=== PATIENT | female | born 1985 ===

== ENCOUNTER 2017-06-15 21:16 | Inpatient (IN) | payer MEDICAID, MEDICARE, OTHER ==
[2017-06-15 21:16] VITALS: BMI 30.2
[2017-06-16 16:46] VITALS: RESP 20
[2017-06-17 17:11] VITALS: BP 114/77; PULSE 100; TEMP 97.7; O2SAT 96
== END 2017-06-17 18:07 | disposition left against medical advice (07) | DRG 781 ==
LOC: C.ER 21:16 → C.9OBSV 23:52 → OBSVTOIN 06-16 13:02 → C.9E 06-16 13:02 → C.5T 06-16 14:48
PROVIDERS: ADMIT Internal Medicine; ATTEND Internal Medicine
DX: O99.342 Other mental disorders complicating pregnancy, second trimester (principal); O99.412 Diseases of the circulatory system complicating pregnancy, second trimester; F17.210 Nicotine dependence, cigarettes, uncomplicated; O99.512 Diseases of the respiratory system complicating pregnancy, second trimester; Z59.0 Homelessness; I51.7 Cardiomegaly; I87.8 Other specified disorders of veins; Z3A.15 15 weeks gestation of pregnancy

== ENCOUNTER 2017-06-18 23:56 | Inpatient (IN) | payer MEDICARE, MEDICAID ==
[2017-06-18 23:57] VITALS: BMI 30.2
[2017-06-19 01:09] LABS: BLOOD UREA NITROGEN 6 mg/dL (7-17); CALCIUM 8.7 mg/dl (8.6-10.4); CARBON DIOXIDE 22 mmol/L (22-30); CHLORIDE 105 mmol/L (98-107); GFR AFRICAN-AMERICAN > 60; GLUCOSE,RANDOM 107 mg/dL (65-105); POTASSIUM 3.4 mmol/L (3.6-5.2); SODIUM 143 mmol/L (132-148); TOTAL PROTEIN 6.5 g/dL (6.3-8.3)
[2017-06-19 01:10] LABS: ALCOHOL SERUM < 10 mg/dl (0-10); ALKALINE PHOSPHATASE 82 U/L (38-126); ALT/SGPT 31 U/L (9-52); AST/SGOT 33 U/L (14-36); BILIRUBIN,TOTAL 0.3 mg/dL (0.2-1.3)
[2017-06-19 01:14] LABS: BASO # 0.2 K/uL (0.0-0.2); BASO % 1.1 % (0.0-2.0); EOS # 0.4 K/uL (0.0-0.7); EOS % 3.1 % (0.0-4.0); HEMATOCRIT 32.8 % (34.0-47.0); LYMPH # 3.7 K/uL (1.0-4.3); LYMPH % 26.4 % (20.0-40.0); MEAN CELL VOLUME 73.1 fL (81.0-99.0); MEAN CORPUSCULAR HEMOGLOBIN 23.4 pg (27.0-31.0); MEAN PLATELET VOLUME 7.4 fL (7.2-11.7); MONO # 0.7 K/uL (0.0-0.8); MONO % 4.7 % (0.0-10.0); NRBC % 0.1 % (0.0-2.0); RED CELL DISTRIBUTION WIDTH 14.7 % (11.5-14.5); WHITE BLOOD COUNT 14.1 K/uL (4.8-10.8)
[2017-06-19 03:10] VITALS: RESP 18
[2017-06-19 03:15] LABS: RBC URINE 23 /hpf (0-3); URINE BILIRUBIN NEGATIVE (NEGATIVE); URINE BLOOD NEGATIVE (NEGATIVE); URINE COLOR Yellow (YELLOW); URINE GLUCOSE (UA) NORMAL (Normal); URINE KETONE NEGATIVE (NEGATIVE); URINE LEUKOCYTE ESTERASE 3+ Leu/uL (Negative); URINE PROTEIN NEGATIVE (NEGATIVE); URINE UROBILINOGEN NORMAL mg/dL (0.2-1.0); WBC URINE 86 /hpf (0-5)
--- NOTE | 2017-06-19 03:58 | C.PDOC ---
Time Seen by Provider: 06/19/17 00:19 Chief Complaint (Nursing): Psychiatric Evaluation History Per: Patient History/Exam Limitations: other (Psychiatric condition) Current Symptoms Are (Timing): Still Present Suicide/Self Injury Attempted (Context): None Modifying Factor(s): None Severity: Moderate Associated Symptoms: Anxiety, Other (Delusions). denies: Suicidal Thoughts Additional History Per: Prior Records Past Medical History Reviewed: Historical Data, Nursing Documentation, Vital Signs Vital Signs: Last Vital Signs Temp 98.1 F 06/19/17 00:04 Pulse 98 H 06/19/17 03:33 Resp 18 06/19/17 03:33 BP 116/56 L 06/19/17 03:33 Pulse Ox 99 06/19/17 03:33 - Medical History PMH: Anxiety, Depression, Paranoia, Schizophrenia Other PMH: Pt is 15 weeks Surgical History: No Surg Hx - [facility] Procedures INJECT/INFUSE NEC (12/30/05) PSYCHIAT DRUG THERAP NEC (02/04/14) Family History: States: Unknown Family Hx - Social History Hx Tobacco Use: Yes Hx Alcohol Use: No Hx Substance Use: No Review Of Systems Constitutional: Negative for: Fever Respiratory: Negative for: Shortness of Breath Gastrointestinal: Negative for: Vomiting, Abdominal Pain, Diarrhea Genitourinary: Positive for: Dysuria. Negative for: Vaginal Bleeding Musculoskeletal: Negative for: Neck Pain, Back Pain Skin: Negative for: Rash Neurological: Negative for: Weakness, Numbness Psych: Positive for: Psychosis Physical Exam - Physical Exam Appears: Non-toxic, No Acute Distress Skin: Normal Color, Warm, Dry Head: Atraumatic, Normacephalic Eye(s): bilateral: PERRL, EOMI Oral Mucosa: Moist Neck: Normal ROM, Supple Cardiovascular: Rhythm Regular Respiratory: Normal Breath Sounds, No Accessory Muscle Use Gastrointestinal/Abdominal: Soft, No Tenderness, Other (Gravid) Extremity: Normal ROM, Pedal Edema (trace b/l) Neurological/Psych: Oriented x3, Normal Motor, Normal Sensation ED Course And Treatment - Laboratory Results Result Diagrams: 06/19/17 01:05 06/19/17 00:50 Interpretation Of Abnormal: UTI, urine C&S sent Urine POC: Positive ECG: Interpreted By Me, Viewed By Me ECG Rhythm: Sinus Tachycardia Rate From EC O2 Sat by Pulse Oximetry: 99 Pulse Ox Interpretation: Normal Progress Note: Pt is medically stable for psychiatric admission. I recommend obtaining internal medicine and Telephone Lineworker consultations during admission. Reassessment Condition: Improved Disposition Counseled Patient/Family Regarding: Studies Performed, Diagnosis - Disposition Disposition: HOSPITALIZED Disposition Time: 04:01 Condition: STABLE - Clinical Impression Clinical Impression: Schizoaffective disorder, Decision To Admit - Pt Status Changed To: Hospital Disposition Of: Inpatient - Admit Certification Admit to Inpatient:: After my assessment, the patient will require hospitalization for at least two midnights. This is because of the severity of symptoms shown, intensity of services needed, and/or the medical risk in this patient being treated as an outpatient. - InPatient: Physician Admission Certification: I certify that this patient requires 2 or more midnights of care for the following reason:: Psych. - . Bed Request Type: Psychiatry Admitting Physician: Abbie Maki Patient Diagnosis: Schizoaffective disorder,
--- NOTE | 2017-06-19 05:27 | PCM.BM ---
<Hebert Ricketts - Last Filed: 06/19/17 05:24> Treatment Plan Problems - Problems identified on initial assessmt Acute Psychosis Date Initiated: 06/19/17 Time Initiated: 05:24 Assessment reference: NA Status: Active Substance Abuse Date Initiated: 06/19/17 Time Initiated: 05:29 Assessment reference: NA Status: Active Treatment assets and liabiliti Patient Assests: ADL independent Patient Liabilities: financial problems, poor support system, substance abuse, medical problems, imparied memory - Milieu Protocol Maintain good personal hygiene: daily Encourage regular showers, daily Remind patient to perform daily oral care, daily Assist patient to perform ADL's Maintain personal safety: every shift Educate patient to report safety concerns to staff, every shift Monitor environment for contraband/sharps Medication safety: Monitor for expected outcome, potential side effects: every shift, Assess barriers to learning: every shift, Assess readiness for medication education: every shift <Abbie Maki - Last Filed: 06/23/17 00:05> - Diagnosis (1) Schizoaffective disorder Status: Acute Interventions: 06/23/17 00:05 * Assess/adjust medications daily and /or as needed * Discuss risks, benefits, sided effects and alternatives of medications * See patient on an individual basis 7x/week to assess level of delusional thoughts/ideation *
[2017-06-19] MEDS: Multiple Vitamins Tab PO SCH (11:50)
--- NOTE | 2017-06-19 16:08 | PCM.PSYCH ---
Initial Psychiatric Evaluation - Initial Psychiatric Evaluation Legal Status: Capacity Chief Complaint (in patient's own words): "I am not feeling safe" History of Present Illness and Precipitating Events: The pt is seen, chart reviewed, case discussed. She is a 32 yo F, 14 weeks . Per staff, pt was alert and verbally responsive, mood was angry and hostile on admission. She was uncooperative with assessment at bedside. Attempted to speak with patient 2 times, but pt was uncooperative both times. On admission, denied medical and surgical history and denied history of drug and alcohol use. According to crisis note she has history of drinking and marijuana use. UDS negative for drugs. Pt reported smoking a half a pack to one pack of cigarette daily. Denied suicide and homicide ideation. Denied A/V hallucinations. Current Medications: Active Medications Generic Name Dose Route Start Last Admin Trade Name Freq PRN Reason Stop Dose Admin Benztropine Mesylate 1 mg 06/19/17 11:09 Cogentin PO Q6H PRN dystonia, EPS Folic Acid 1 mg 06/19/17 11:15 06/19/17 11:50 Folic Acid PO 1 mg DAILY LEONARD Administration Haloperidol 5 mg 06/19/17 11:00 06/19/17 11:50 Haldol PO 5 mg BID LEONARD Administration Multivitamins 1 tab 06/19/17 11:15 06/19/17 11:50 Hexavitamin PO 1 tab DAILY [facility] Administration Nitrofurantoin Macrocrystals 100 mg 06/19/17 11:30 06/19/17 11:49 Macrobid PO 100 mg Q12 LEONARD Administration Thiamine HCl 50 mg 06/19/17 11:15 Vitamin B1 Tab PO DAILY LEONARD Past Psychiatric History - Past Psychiatric History Pertinent Medical Hx (Current Medical&Sleep Prob, Allergies): Allergies Allergy/AdvReac Type Severity Reaction Status Date / Time No Known Allergies Allergy Verified 03/07/13 06:36 Zolpidem [Ambien] 10 mg PO DAILY 06/15/17 Review of Systems - Neurological Neurological: As Per HPI - Psychiatric Psychiatric: As Per HPI Mental Status Examination - Personal Presentation Personal Presentation: Looks stated age - Cognitive Functions Orientation: Person, Place, Situation, Time Sensorium: Drowsy Additional comments: Patient was falling asleep during interview DSM 5 DX - DSM 5 DSM 5 Diagnosis: Psychosis unspecified rule out Schizoaffective d/o - Recommended/Plan of Treatment Treatment Recommendations and Plan of Treatment: Cogentin Folic Acid Haldol Hexavitamin Macrobid Vitamin B1 Tab Support and psychoeducation daily Attend groups and activities daily After care planning by MARS Projected ELOS: 4-5 Days Prognosis: Good with tx
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
[2017-06-19] MEDS ORDERED: Potassium Chloride 20 mEq ER Tab PO STA (19:29)
[2017-06-19] MEDS: Potassium Chloride 20 mEq ER Tab PO STA ×2 (21:11→21:12)
[2017-06-20 07:40] VITALS: TEMP 98.2; O2SAT 99
[2017-06-20] MEDS: Multiple Vitamins Tab PO SCH (10:22)
--- NOTE | 2017-06-20 11:31 | CP.PCM.PN ---
Subjective - Date & Time of Evaluation Date of Evaluation: 06/20/17 Time of Evaluation: 09:00 - Subjective Subjective: clinically same Objective - Vital Signs/Intake and Output Vital Signs (last 24 hours): Temp Pulse Resp BP Pulse Ox 98.2 F 98 H 18 111/65 99 06/20/17 07:38 06/20/17 07:38 06/20/17 07:38 06/20/17 07:38 06/20/17 07:38 - Medications Medications: Current Medications Benztropine Mesylate (Cogentin) 1 mg PO Q6H PRN PRN Reason: dystonia, EPS Folic Acid (Folic Acid) 1 mg PO DAILY [facility] Last Admin: 06/20/17 10:21 Dose: Not Given Haloperidol (Haldol) 5 mg PO BID [facility] Last Admin: 06/20/17 10:22 Dose: Not Given Multivitamins (Hexavitamin) 1 tab PO DAILY [facility] Last Admin: 06/20/17 10:22 Dose: Not Given Nitrofurantoin Macrocrystals (Macrobid) 100 mg PO Q12 [facility] Last Admin: 06/20/17 10:22 Dose: Not Given Thiamine HCl (Vitamin B1 Tab) 50 mg PO DAILY [facility] Last Admin: 06/20/17 10:22 Dose: Not Given - Constitutional Appears: Well - Head Exam Head Exam: ATRAUMATIC, NORMAL INSPECTION, NORMOCEPHALIC - Eye Exam Eye Exam: EOMI, Normal appearance, PERRL Pupil Exam: NORMAL ACCOMODATION, PERRL - ENT Exam ENT Exam: Mucous Membranes Moist, Normal Exam - Neck Exam Neck Exam: Full ROM, Normal Inspection. absent: Lymphadenopathy - Respiratory Exam Respiratory Exam: Decreased Breath Sounds - Cardiovascular Exam Cardiovascular Exam: REGULAR RHYTHM, +S1, +S2 - GI/Abdominal Exam GI & Abdominal Exam: Soft, Diminished Bowel Sounds - Rectal Exam Rectal Exam: Deferred Assessment and Plan - Assessment and Plan (Free Text) Plan: Awaiting consult follow-up with Dr. Duncan keys same for cellulitis we may have to give amoxicillin if he is okay with Dr. Brooks cervantesonti nitrofurantoin [facility] pedrandolph
--- NOTE | 2017-06-20 20:25 | PCM.PYCHPN ---
Psychiatric Progress Note - Psychiatric Progress Note Patient seen today, length of contact: 15 minutes Patient Chief Complaint: I need my food Problems Identified/Issues Discussed: This is a 32 year old female with Psychosis unspecified, rule out Schizoaffective d/o. Pt was seen and evaluated. Nurse input received that pt refused to take her morning meds. Pt was agitated, loud and disorganized. She stated that can she eat the food which she bought 2 days ago before admission to the unit. Pt was not able to explain it further and admantly asked her food which was placed in her bag. She declined to cooperate with this lead technical writer and refuse to answer further. She stated that she is ok. Diagnostic Results: Please see labs DSM 5 Symptoms Update: Psychosis unspecified rule out Schizoaffective d/o Medication Change: No Medical Record Reviewed: Yes Consults ordered or reviewed: Waiting for consult recommendations. Mental Status Examination - Cognitive Function Orientation: Person, Place, Situation, Time Memory: Intact Attention: Poor Concentration: Poor Association: Loose Fund of Knowledge: Poor Decription of patient's judgement and insights: Unkempt, loud, wearing hospital gown, malodorous - Mood Mood: Neutral Additional comments: but appeared dysphoric - Affect Affect: Flat, Depressed - Speech Speech: Loud - Formal Thought Process Psychotic Thoughts and Behaviors: disorganized, uncooperative - Suicidal Ideation Suicidal Ideation: No - Homicidal Ideation Homicidal Ideation: No Goal/Treatment Plan - Goal/Treatment Plan Need for Continued Stay: Remain at risks for inpatient hospitalization, Discharge may exacerbated symptoms Progress Toward Problem(s) and Goals/Treatment Plan: Continue current treatment as per primary team. Therapy in milieu - Smoking Cessation Smoking Cessation Initiated: No Reason for not providing: pt is not cooperative
--- NOTE | 2017-06-20 21:29 | CARD ---
APPROVED REPORT EKG Measurement Heart [id number] IL [id number] [id number] <Conclusion> Sinus tachycardia Otherwise normal ECG
--- NOTE | 2017-06-21 09:52 | CP.PCM.PN ---
Subjective - Date & Time of Evaluation Date of Evaluation: 06/21/17 Time of Evaluation: 09:20 - Subjective Subjective: clinically same Objective - Vital Signs/Intake and Output Vital Signs (last 24 hours): Temp Pulse Resp BP Pulse Ox 98.2 F 111 H 18 108/63 99 06/20/17 07:38 06/20/17 16:21 06/20/17 07:38 06/20/17 16:21 06/20/17 07:38 - Medications Medications: Current Medications Acetaminophen (Tylenol 325mg Tab) 650 mg PO Q6 PRN PRN Reason: Headache Last Admin: 06/20/17 22:09 Dose: 650 mg Benztropine Mesylate (Cogentin) 1 mg PO Q6H PRN PRN Reason: dystonia, EPS Folic Acid (Folic Acid) 1 mg PO DAILY [facility] Last Admin: 06/20/17 10:21 Dose: Not Given Haloperidol (Haldol) 5 mg PO BID [facility] Last Admin: 06/20/17 17:59 Dose: 5 mg Multivitamins (Hexavitamin) 1 tab PO DAILY [facility] Last Admin: 06/20/17 10:22 Dose: Not Given Thiamine HCl (Vitamin B1 Tab) 50 mg PO DAILY [facility] Last Admin: 06/20/17 10:22 Dose: Not Given - Constitutional Appears: Well - Head Exam Head Exam: ATRAUMATIC, NORMAL INSPECTION, NORMOCEPHALIC - Eye Exam Eye Exam: EOMI, Normal appearance, PERRL Pupil Exam: NORMAL ACCOMODATION, PERRL - ENT Exam ENT Exam: Mucous Membranes Moist, Normal Exam - Neck Exam Neck Exam: Full ROM, Normal Inspection. absent: Lymphadenopathy - Respiratory Exam Respiratory Exam: Decreased Breath Sounds - Cardiovascular Exam Cardiovascular Exam: REGULAR RHYTHM, +S1, +S2 - GI/Abdominal Exam GI & Abdominal Exam: Soft, Diminished Bowel Sounds - Rectal Exam Rectal Exam: Deferred
[2017-06-21] MEDS: Multiple Vitamins Tab PO SCH ×2 (10:26→11:50)
--- NOTE | 2017-06-21 13:35 | CP.PCM.CON ---
History of Present Illness - History of Present Illness History of Present Illness: referred for ID eval 32 yo female 15 weeks c/o frequent urination denies fever chills cough or sob PMH- + schizophrenia, depression Review of Systems - Constitutional Constitutional: absent: As Per HPI, Anorexia, Chills, Daytime Sleepiness, Excessive Sweating, Fatigue, Fever, Frequent Falls, Headache, Increased Appetite , Lethargy, Malaise, Night Sweats, Snoring, Sleep Apnea, Weight Gain, Weight Loss, Weakness, Other - EENT Eyes: absent: As Per HPI, Blind Spots, Blurred Vision, Change in Vision, Decreased Night Vision, Diplopia, Discharge, Dry Eye, Exophthalmos, Floaters, Irritation, Itchy Eyes, Loss of Peripheral Vision, Pain, Photophobia, Requires Corrective Lenses, Sees Flashes, Spots in Vision, Tunnel Vision, Other Visual Disturbances, Loss of Vision, Other Ears: absent: As Per HPI, Decreased Hearing, Ear Discharge, Ear Pain, Tinnitus, Abnormal Hearing, Disequilibrium, Dizziness, Other Nose/Mouth/Throat: absent: As Per HPI, Epistaxis, Nasal Congestion, Nasal Discharge, Nasal Obstruction, Nasal Trauma, Nose Pain, Post Nasal Drip, Sinus Pain, Sinus Pressure, Bleeding Gums, Change in Voice, Dental Pain, Dry Mouth, Dysphagia, Halitosis, Hoarsness, Lip Swelling, Mouth Lesions, Mouth Pain, Odynophagia, Sore Throat, Throat Swelling, Tongue Swelling, Facial Pain, Neck Pain, Neck Mass, Other - Breasts Breasts: absent: As Per HPI, Change in Shape, Mass, Pain, Nipple Discharge, Nipple Inversion, Skin Changes, Swelling, Other - Cardiovascular Cardiovascular: absent: As Per HPI, Acrocyanosis, Chest Pain, Chest Pain at Rest , Chest Pain with Activity, Claudication, Diaphoresis, Dyspnea, Dyspnea on Exertion, Edema, Irregular Heart Rhythm, Pain Radiating to Arm/Neck/Jaw, Leg Edema, Leg Ulcers, Lightheadedness, Orthopnea, Palpitations, Paroxysmal Nocturnal Dyspnea, Pedal Edema, Radiating Pain, Rapid Heart Rate, Slow Heart Rate, Syncope, Other - Respiratory Respiratory: absent: As Per HPI, Cough, Dyspnea, Hemoptysis, Dyspnea on Exertion , Wheezing, Snoring, Stridor, Pain on Inspiration, Chest Congestion, Excessive Mucous Production, Change in Mucous Color, Pain with Coughing, Other - Gastrointestinal Gastrointestinal: absent: As Per HPI, Abdominal Pain, Belching, Bloating, Change in Bowel Habits, Change in Stool Character, Coffee Ground Emesis, Constipation, Cramping, Diarrhea, Dyspepsia, Dysphagia, Early Satiety, Excessive Flatus, Fecal Incontinence, Heartburn, Hematemesis, Hematochezia, Loose Stools, Melena, Nausea, Odynophagia, Temesmus, Vomiting, Other - Genitourinary Genitourinary: As Per HPI, Urinary Frequency - Reproductive: Female Reproductive:Female: absent: As Per HPI, Amenorrhea, Amenorrhea/ Control, Currently Menstual, Cycle <21 Days, Cycle >35 Days, Cycle Variable, Menses 1-7 Days, Menses >/= 8 Days, Menses Variable, Cycle > 4 Weeks Between, No Menses for 6 Months, Heavy Menses, Light Menses, Normal Menses, Spotting Between Cycles , S/P Hysterectomy, Menopausal, Post Menopausal, Premenarche, Abnormal Vaginal Bleeding, Dysmenorrhea, Dyspareunia, Genital Lesions, Genital Pruritis, Pelvic Pain, Prolapse Symptoms, Sexual Dysfunction, Vaginal Discharge, Vaginal Dryness , Vaginal Odor, Vaginal Pruritis, Other - Menstruation Menstruation: absent: As Per HPI, Amenorrhea, Amenorrhea/ Control, Currently Menstual, Cycle <21 Days, Cycle >35 Days, Cycle Variable, Menses 1-7 Days, Menses >/= 8 Days, Menses Variable, Cycle > 4 Weeks Between, No Menses for 6 Months, Heavy Menses, Light Menses, Normal Menses, Spotting Between Cycles , S/P Hysterectomy, Menopausal, Post Menopausal, Premenarche, Abnormal Vaginal Bleeding, Dysmenorrhea, Other - Musculoskeletal Musculoskeletal: absent: As Per HPI, Abnormal Gait, Arthralgias, Atrophy, Back Pain, Deformity, Joint Swelling, Limited Range of Motion, Loss of Height, Muscle Cramps, Muscle Weakness, Myalgias, Neck Pain, Numbness, Radiating Pain into Limb, Stiffness, Tingling, Other - Integumentary Integumentary: absent: As Per HPI, Acne, Alopecia, Bleeding Lesions, Change in Hair, Change in Nails, Change in Pigmentation, Changing Lesions, Dry Skin, Erythema, Furuncle, Hirsutism, Lesions, New Lesions, Non-Healing Lesions, Photosensitivity, Pruritus, Rash, Skin Pain, Skin Ulcer, Sores, Striae, Swelling , Unusual Bruising, Wounds, Jaundice, Other - Neurological Neurological: absent: As Per HPI, Abnormal Gait, Abnormal Hearing, Abnormal Movements, Abnormal Speech, Behavioral Changes, Burning Sensations, Confusion, Convulsions, Disequilibrium, Dizziness, Numbness, Focal Weakness, Frequent Falls , Headaches, Lack of Coordination, Loss of Vision, Memory Loss, Paresthesias, Radicular Pain, Restless Legs, Sensory Deficit, Syncope, Tingling, Tremor, Vertigo, Weakness, Other Visual Disturbances, Other - Psychiatric Psychiatric: absent: As Per HPI, Abnormal Sleep Pattern, Anhedonia, Anxiety, Auditory Hallucinations, Behavioral Changes, Change in Appetite, Change in Libido, Confusion, Depression, Difficulty Concentrating, Hallucinations, Homicidal Ideation, Hopelessness, Irritability, Memory Loss, Mood Swings, Panic Attacks, Paranoia, Suicidal Ideation, Visual Hallucinations, Tactile Hallucinations, Other - Endocrine Endocrine: absent: As Per HPI, Change in Body Appearance, Change in Libido, Cold Intolorance, Deepening of Voice, Excessive Sweating, Fatigue, Flushing, Heat Intolorance, Increase in Ring/Shoe/Hat Size, Palpitations, Polydipsia, Polyphagia, Polyuria, Other - Hematologic/Lymphatic Hematologic: absent: As Per HPI, Easy Bleeding, Easy Bruising, Lymphadenopathy, Other Past Patient History - Infectious Disease Hx of Infectious Diseases: None - Tetanus Immunizations Tetanus Immunization: Unknown - Past Social History Smoking Status: Never Smoked - CARDIAC Hx Cardiac Disorders: No - PULMONARY Hx Respiratory Disorders: No - NEUROLOGICAL Hx Neurological Disorder: No - HEENT Hx HEENT Problems: No - RENAL Hx Chronic Kidney Disease: No - ENDOCRINE/METABOLIC Hx Endocrine Disorders: No - HEMATOLOGICAL/ONCOLOGICAL Hx Blood Disorders: No - INTEGUMENTARY Hx Dermatological Problems: No - MUSCULOSKELETAL/RHEUMATOLOGICAL Hx Musculoskeletal Disorders: No - GASTROINTESTINAL Hx Gastrointestinal Disorders: No - GENITOURINARY/GYNECOLOGICAL Hx Genitourinary Disorders: No - PSYCHIATRIC Hx Substance Use: Yes - SURGICAL HISTORY Hx Surgeries: No - ANESTHESIA Hx Anesthesia: No Meds Allergies/Adverse Reactions: Allergies Allergy/AdvReac Type Severity Reaction Status Date / Time No Known Allergies Allergy Verified 03/07/13 06:36 - Medications Medications: Current Medications Acetaminophen (Tylenol 325mg Tab) 650 mg PO Q6 PRN PRN Reason: Headache Last Admin: 08/12/17 22:09 Dose: 650 mg Benztropine Mesylate (Cogentin) 1 mg PO Q6H PRN PRN Reason: dystonia, EPS Folic Acid (Folic Acid) 1 mg PO DAILY [facility] Last Admin: 06/21/17 11:50 Dose: 1 mg Haloperidol (Haldol) 5 mg PO BID [facility] Last Admin: 06/21/17 11:50 Dose: 5 mg Multivitamins (Hexavitamin) 1 tab PO DAILY [facility] Last Admin: 06/21/17 11:50 Dose: 1 tab Thiamine HCl (Vitamin B1 Tab) 50 mg PO DAILY [facility] Last Admin: 06/21/17 11:50 Dose: 50 mg Physical Exam - Constitutional Appears: Chronically Ill - Head Exam Head Exam: ATRAUMATIC, NORMOCEPHALIC - Eye Exam Eye Exam: PERRL - ENT Exam ENT Exam: Mucous Membranes Dry - Neck Exam Neck exam: Negative for: Lymphadenopathy - Respiratory Exam Respiratory Exam: Decreased Breath Sounds, Clear to Auscultation Bilateral - Cardiovascular Exam Cardiovascular Exam: REGULAR RHYTHM - GI/Abdominal Exam GI & Abdominal Exam: Diminished Bowel Sounds, Soft. absent: Tenderness - Rectal Exam Rectal Exam: Deferred - Exam Exam: NORMAL INSPECTION - Extremities Exam Extremities exam: Negative for: pedal edema - Back Exam Back exam: absent: CVA tenderness (L), CVA tenderness (R) - Neurological Exam Neurological exam: Alert, CN II-XII Intact, Oriented x3, Reflexes Normal - Psychiatric Exam Psychiatric exam: Normal Mood - Skin Skin Exam: Dry, Intact Results - Vital Signs Recent Vital Signs: Last Vital Signs Temp 98.2 F 06/20/17 07:38 Pulse 111 H 06/20/17 16:21 Resp 18 06/20/17 07:38 BP 108/63 06/20/17 16:21 Pulse Ox 99 06/20/17 07:38 - Labs Result Diagrams: 06/19/17 01:05 06/19/17 00:50 Assessment & Plan (1) UTI (urinary tract infection) Status: Acute (2) UTI (urinary tract infection) Status: Acute (3) Status: Acute (4) Schizoaffective disorder Status: Acute (5) Intrauterine Status: Acute - Assessment and Plan (Free Text) Assessment: await urine c/s start amoxil
[2017-06-21 16:01] VITALS: BP 137/69; PULSE 120
--- NOTE | 2017-06-21 20:16 | PCM.PYCHPN ---
Psychiatric Progress Note - Psychiatric Progress Note Patient seen today, length of contact: 15 minutes Patient Chief Complaint: "I'm fine and want to be discharged" Problems Identified/Issues Discussed: This is a 32 year old female with Psychosis unspecified, rule out Schizoaffective d/o. Pt was seen and evaluated. Nurse input received that pt refused to take her meds yesterday, but with encouragement she took Haldol. Pt is isolated to her room, not involved in groups or with the other peers. She stated that she is ok and want to be discharge from the unit. This flex o writer operator explained the pt to give the 48 hour discharge notice. Diagnostic Results: Please see labs Medication Change: No Medical Record Reviewed: Yes Mental Status Examination - Cognitive Function Orientation: Person, Place, Situation, Time Memory: Intact Attention: Poor Concentration: Poor Association: Loose Fund of Knowledge: Poor Decription of patient's judgement and insights: Unkempt, isolated, wearing hospital gown, malodorous - Mood Mood: Other (I'm ok) - Affect Affect: Flat, Depressed - Speech Speech: Loud - Formal Thought Process Formal Thought Process: No Impairment Psychotic Thoughts and Behaviors: internally preoccupied and uncooperative - Suicidal Ideation Suicidal Ideation: No - Homicidal Ideation Homicidal Ideation: No Goal/Treatment Plan - Goal/Treatment Plan Need for Continued Stay: Remain at risks for inpatient hospitalization, Discharge may exacerbated symptoms Progress Toward Problem(s) and Goals/Treatment Plan: Continue current treatment as per primary team. Therapy in milieu Encourage to attend groups
--- NOTE | 2017-06-22 10:42 | PCM.PYCHDC ---
Mental Status Examination - Mental Status Examination Orientation: Person, Place, Situation, Time Memory: Impaired Mood: Anxious Affect: Constricted Speech: Appropriate Attention: Poor Concentration: Poor Association: WNL Fund of Knowledge: Poor Formal Thought Process: No Impairment Suicidal Ideation: No Current Homicidal Ideation?: No Discharge Summary - Discharge Note Reason for Hospitalization: Psychotic episode, vague SI Consultations:: List each consultation separately and include: 1. Reason for request. 2. Findings. 3. Follow-up Summary of Hospital Course include:: 1. Description of specific treatment plan utilized for patients during their course of treatmen. 2. Summarize the time- course for resolution of acute symptoms and/or regressed behaviors. 3. Describe issues identified and worked on during hospitalization. 4. Describe medication utilized. 5. Describe medical problems identified and treated. 6. Reassessment of suicide risk Summary of Hospital Course: Pt denies SI, AVH, feelings of depression. Pt reports that she "wants to keep her baby." Pt reports gestational age of 2 weeks but ultrasound showed 14 weeks. Pt was very eager to leave the hospital and did not want to stay. DYFS visited her before she left. All risks of discharge were discussed with pt including: relapse, overdose, , and other risks. Pt understood risks but did not change mind. Course: The pt was admitted and started on treatment with psychotherapy, support, psychoeducation and medications. The pt did noty attend anything and just like before demanded to leave AMA. She was very uncooperative She is seen by medicine but they sign out and OB did not come b/c they saw her very recently a nd that she had reported her wish to terminate the . All the risks and benefits of medications are discussed and the patient understood and agreed, incl. their use in The pt improved with the treatments provided, however she was not fully well. After care discussed with the patient but she was not interested. - Final Diagnosis (DSM 5) Condition upon Discharge: STABLE DSM 5: Psychotic d/o - unspecified Disposition: AGAINST MEDICAL ADVICE Follow-up Treatment Plan: Continue below medications after discharge Antibiotics and vitamins Follow after care plan as discussed. Use relapse prevention skills Return to ER or call 911 if suicidal, homicidal or symptoms relapse. Stay away from stress, alcohol and drugs. See primary doctor once a year. - Smoking Cessation Smoking Cessation Medication prescribed: No - Antipsychotic Medications Pt discharged on 2 or more routine antipsychotic medications: No
[2017-06-22] MEDS: Multiple Vitamins Tab PO SCH (11:06)
== END 2017-06-22 12:17 | disposition left against medical advice (07) | DRG 781 ==
LOC: C.ER 23:56 → C.5E 06-19 04:03
PROVIDERS: ADMIT Psychiatry & Neurology Psychiatry; ATTEND Psychiatry & Neurology Psychiatry
DX: O99.342 Other mental disorders complicating pregnancy, second trimester (principal); O23.42 Unspecified infection of urinary tract in pregnancy, second trimester; F23 Brief psychotic disorder; L03.90 Cellulitis, unspecified; F25.9 Schizoaffective disorder, unspecified; F32.9 Major depressive disorder, single episode, unspecified; F41.9 Anxiety disorder, unspecified; O26.892 Other specified pregnancy related conditions, second trimester; F17.210 Nicotine dependence, cigarettes, uncomplicated; Z3A.14 14 weeks gestation of pregnancy

== ENCOUNTER 2017-06-23 16:11 | Emergency (ER) | payer MEDICARE, MEDICAID ==
[2017-06-23 16:49] VITALS: BMI 35.6
[2017-06-23 17:00] VITALS: O2SAT 100
[2017-06-23] MEDS ORDERED: Sodium Chloride 0.9% 1,000 ML IV STA (17:41)
--- NOTE | 2017-06-23 17:41 | C.PDOC ---
History Of Present Illness <Elsi Morales - Last Filed: 06/23/17 18:55> <Robert Lovelace - Last Filed: 06/23/17 19:34> 32 y/o female, 14 weeks , presents to the ED with complaints of intermittent abdominal pain associated with nausea for the past week. Pt reports urinary frequency, and incontinence. Otherwise, denies any vaginal bleeding, vaginal discharge, vomiting, diarrhea, hematuria, back pain, fever, or chills. (Elsi Morales) History Per: Patient History/Exam Limitations: no limitations Onset/Duration Of Symptoms: Days (1 week) Current Symptoms Are (Timing): Still Present Location Of Pain/Discomfort: Diffuse Radiation Of Pain To:: None Quality Of Discomfort: "Pain" Associated Symptoms: Nausea, Urinary Symptoms. denies: Fever, Chills, Vomiting , Diarrhea, Loss Of Appetite, Back Pain, Chest Pain, Constipation Exacerbating Factors: None Alleviating Factors: None Recent travel outside of the [place]: No Additional History Per: Patient Abnormal Vaginal Bleeding: No <Elsi Morales - Last Filed: 06/23/17 18:55> <Robert Lovelace - Last Filed: 06/23/17 19:34> Chief Complaint (Nursing): Abdominal Pain Past Medical History Reviewed: Historical Data, Nursing Documentation, Vital Signs - Medical History PMH: Anxiety, Asthma, Depression, Paranoia, Schizophrenia Surgical History: Denies: Appendectomy, Cholecystectomy, Coronary Stent, Pacemaker Family History: States: Unknown Family Hx - Social History Hx Tobacco Use: Yes Hx Alcohol Use: Yes Hx Substance Use: No - Immunization History Hx Tetanus Toxoid Vaccination: No Hx Influenza Vaccination: Yes Hx Pneumococcal Vaccination: No <Elsi Morales - Last Filed: 06/23/17 18:55> Review Of Systems Except As Marked, All Systems Reviewed And Found Negative. Constitutional: Negative for: Fever, Chills Cardiovascular: Negative for: Chest Pain Respiratory: Negative for: Shortness of Breath Gastrointestinal: Positive for: Nausea, Abdominal Pain. Negative for: Vomiting , Diarrhea, Constipation Genitourinary: Positive for: Frequency, Incontinence. Negative for: Dysuria, Hematuria, Vaginal Discharge, Vaginal Bleeding, Pelvic Pain Musculoskeletal: Negative for: Back Pain Skin: Negative for: Rash, Bruising <Elsi Morales - Last Filed: 06/23/17 18:55> Physical Exam - Physical Exam Appears: Non-toxic, No Acute Distress, Unkempt (body odor), Other (obese) Skin: Normal Color, Warm, Dry Head: Atraumatic, Normacephalic Eye(s): bilateral: Normal Inspection Oral Mucosa: Moist Neck: Normal ROM, Supple Cardiovascular: Rhythm Regular, No Murmur Respiratory: Normal Breath Sounds, No Rales, No Rhonchi, No Wheezing Gastrointestinal/Abdominal: Soft, Tenderness (diffusely tender in upper and suprapubic abdomen), No Distention, No Guarding, No Rebound Back: Normal Inspection, No CVA Tenderness Extremity: Bilateral: Atraumatic, Normal ROM Neurological/Psych: Oriented x3, Normal Speech, Normal Cognition <MingjeffreyElsi - Last Filed: 06/23/17 18:55> ED Course And Treatment - Laboratory Results Result Diagrams: 06/23/17 17:53 06/23/17 17:53 O2 Sat by Pulse Oximetry: 100 (RA) Pulse Ox Interpretation: Normal - CT Scan/US OB preg US Other Rad Studies (CT/US): Read By Radiologist, Radiology Report Reviewed CT/US Interpretation: Indication: Abdominal pain/pelvic pain. Comparison: Limited Ob ultrasound performed 06/16/17. Technique: Real-time ultrasound was performed through the pelvis. Findings: Markedly limited evaluation. There is a single living fetus in breech presentation. Anterior placenta. The placenta is not previa. Bilateral ovaries are not visualized. There are no adnexal masses or cysts evident. Cervix length measures approximately 3.8 cm. Measurements and calculations: Fetus has a composite sonographic age of 15 weeks 5 days. This calculation is based on the biparietal diameter, head circumference, abdominal circumference, and femur length. Estimated heart rate 156.6 beats per min. Impression: Markedly limited study. Single living fetus with a composite sonographic age of 15 weeks 5 days. Estimated heart rate 156.6 beats per min. Advise an anomaly screen at 16-18 weeks gestational age. Abdomen US Other Rad Studies (CT/US): Read By Radiologist, Radiology Report Reviewed CT/US Interpretation: HISTORY: upper abd pain. COMPARISON: None. TECHNIQUE: Sonographic evaluation of the right upper quadrant of the abdomen. FINDINGS: LIVER: Measures 21.2 cm in length. There is diffuse increased echogenicity of the liver parenchyma. No mass. No intrahepatic bile duct dilatation. GALLBLADDER: No gallstones, wall thickening or pericholecystic fluid. The sonographic Arias's sign is negative. COMMON BILE DUCT: Measures 4.7 mm. No stones. No dilatation. PANCREAS: Unremarkable as visualized. No mass. No ductal dilatation. RIGHT KIDNEY: Measures 12.0 cm in length. Normal echogenicity. No calculus, mass, or hydronephrosis. AORTA: No aneurysmal dilatation. IVC: Unremarkable. OTHER FINDINGS: None . IMPRESSION: 1. Moderate hepatomegaly. Diffuse increased echogenicity in the liver may reflect hepatic steatosis however parenchymal infectious/ inflammatory etiologies cannot be entirely excluded. Clinical and laboratory correlation is advised. 2. No cholelithiasis or biliary dilatation. Progress Note: Blood work, urinalysis, abdomen US, Pelvis US ordered. Pt was given IV fluids. On re-eval, pt is resting comfortably, no acute distress. Pending urine result. <Elsi Morales - Last Filed: 06/23/17 18:55> - Laboratory Results Result Diagrams: 06/23/17 17:53 06/23/17 17:53 <Robert Lovelace - Last Filed: 06/23/17 19:34> Medical Decision Making <Elsi Morales - Last Filed: 06/23/17 18:55> <Robert Lovelace - Last Filed: 06/23/17 19:34> Medical Decision Making: pt with dysuria, early , pending UA h/o ? homeless/psych, many prior preg and births given for adoptions labs wnl, mild leukocytosis, preg UA wnl pt seen and examined- flat/bizarre affect UA mild UTI in early preg macrobid/UC ordered ok to d/c (Robert Lovelace) Disposition - Disposition Disposition Time: 18:55 <Elsi Morales - Last Filed: 06/23/17 18:55> Doctor Will See Patient In The: Office Counseled Patient/Family Regarding: Studies Performed, Diagnosis - Disposition Disposition Time: 19:34 <Robert Lovelace - Last Filed: 06/23/17 19:34> - Disposition Disposition: HOME/ ROUTINE Condition: GOOD Forms: Package Concierge (Qatari) - Clinical Impression Clinical Impression: Abdominal pain, Schizoaffective disorder, UTI in - PA / HELICOPTER OFFICER / Resident Statement MD/DO has reviewed & agrees with the documentation as recorded. - Scribe Statement The provider has reviewed the documentation as recorded by the Scribe <Elsi Morales - Last Filed: 06/23/17 18:55> <Robert Lovelace - Last Filed: 06/23/17 19:34> - Scribe Statement Jesuscarlos Diego All medical record entries made by the Scribe were at my direction and personally dictated by me. I have reviewed the chart and agree that the record accurately reflects my personal performance of the history, physical exam, medical decision making, and the department course for this patient. I have also personally directed, reviewed, and agree with the discharge instructions and disposition. (Elsi Morales) Physician Patient Turnover Patient Signed Over To: Robert Lovelace Handoff Comments: Pending urine results. <Elsi Morales - Last Filed: 06/23/17 18:55>
[2017-06-23 17:57] LABS: BASO # 0.1 K/uL (0.0-0.2); BASO % 0.6 % (0.0-2.0); EOS # 0.3 K/uL (0.0-0.7); EOS % 2.1 % (0.0-4.0); HEMATOCRIT 32.7 % (34.0-47.0); LYMPH # 3.3 K/uL (1.0-4.3); LYMPH % 20.2 % (20.0-40.0); MEAN CELL VOLUME 73.4 fL (81.0-99.0); MEAN CORPUSCULAR HEMOGLOBIN 23.2 pg (27.0-31.0); MEAN CORPUSCULAR HGB CONC 31.6 g/dL (33.0-37.0); MEAN PLATELET VOLUME 7.2 fL (7.2-11.7); MONO # 1.3 K/uL (0.0-0.8); RED CELL DISTRIBUTION WIDTH 15.1 % (11.5-14.5); WHITE BLOOD COUNT 16.4 K/uL (4.8-10.8)
[2017-06-23 18:05] LABS: CHLORIDE 99 mmol/L (98-107); POTASSIUM 3.4 mmol/L (3.6-5.2); SODIUM 133 mmol/L (132-148)
[2017-06-23 18:07] LABS: BILIRUBIN,TOTAL 0.3 mg/dL (0.2-1.3); GFR AFRICAN-AMERICAN > 60
[2017-06-23 18:08] LABS: ALB/GLOB RATIO 1.1 (1.0-2.1); ALKALINE PHOSPHATASE 70 U/L (38-126); ALT/SGPT 29 U/L (9-52); AST/SGOT 23 U/L (14-36); BLOOD UREA NITROGEN 8 mg/dL (7-17); CALCIUM 8.7 mg/dl (8.6-10.4); CARBON DIOXIDE 21 mmol/L (22-30); GLUCOSE,RANDOM 94 mg/dL (65-105); TOTAL PROTEIN 6.5 g/dL (6.3-8.3)
--- NOTE | 2017-06-23 18:48 | US ---
Indication: Abdominal pain/pelvic pain Comparison: Limited Ob ultrasound performed 06/16/17 Technique: Real-time ultrasound was performed through the pelvis. Findings: Markedly limited evaluation. There is a single living fetus in breech presentation. Anterior placenta. The placenta is not previa. Bilateral ovaries are not visualized. There are no adnexal masses or cysts evident. Cervix length measures approximately 3.8 cm. Measurements and calculations: Fetus has a composite sonographic age of 15 weeks 5 days. This calculation is based on the biparietal diameter, head circumference, abdominal circumference, and femur length. Estimated heart rate 156.6 beats per min. Impression: Markedly limited study. Single living fetus with a composite sonographic age of 15 weeks 5 days. Estimated heart rate 156.6 beats per min. Advise an anomaly screen at 16-18 weeks gestational age.
--- NOTE | 2017-06-23 18:49 | US ---
HISTORY: upper abd pain COMPARISON: None. TECHNIQUE: Sonographic evaluation of the right upper quadrant of the abdomen. FINDINGS: LIVER: Measures 21.2 cm in length. There is diffuse increased echogenicity of the liver parenchyma. No mass. No intrahepatic bile duct dilatation. GALLBLADDER: No gallstones, wall thickening or pericholecystic fluid. The sonographic Arias's sign is negative. COMMON BILE DUCT: Measures 4.7 mm. No stones. No dilatation. PANCREAS: Unremarkable as visualized. No mass. No ductal dilatation. RIGHT KIDNEY: Measures 12.0 cm in length. Normal echogenicity. No calculus, mass, or hydronephrosis. AORTA: No aneurysmal dilatation. IVC: Unremarkable. OTHER FINDINGS: None . IMPRESSION: 1. Moderate hepatomegaly. Diffuse increased echogenicity in the liver may reflect hepatic steatosis however parenchymal infectious/ inflammatory etiologies cannot be entirely excluded. Clinical and laboratory correlation is advised. 2. No cholelithiasis or biliary dilatation.
[2017-06-23 19:18] LABS: RBC URINE 3 /hpf (0-3); URINE BACTERIA FEW (<OCC); URINE BILIRUBIN NEGATIVE (NEGATIVE); URINE BLOOD NEGATIVE (NEGATIVE); URINE CALCIUM OXALATE CRYSTALS OCC /hpf (<OCC); URINE COLOR Yellow (YELLOW); URINE GLUCOSE (UA) 1+ mg/dL (Normal); URINE KETONE TRACE mg/dL (NEGATIVE); URINE LEUKOCYTE ESTERASE TRACE Leu/uL (Negative); URINE PROTEIN NEGATIVE (NEGATIVE); URINE UROBILINOGEN NORMAL mg/dL (0.2-1.0); WBC URINE 15 /hpf (0-5)
[2017-06-23 19:54] VITALS: BP 117/78; PULSE 93; RESP 20; TEMP 97.8
== END 2017-06-23 19:53 | disposition home or self-care (01) ==
LOC: C.ER 16:11
DX: O23.42 Unspecified infection of urinary tract in pregnancy, second trimester (principal); F25.9 Schizoaffective disorder, unspecified; O99.342 Other mental disorders complicating pregnancy, second trimester; Z3A.15 15 weeks gestation of pregnancy
CPT/HCPCS: 76705; 76815; 80053; 81001; 83690; 85025; 87086; 99284; G0480; J7040

== ENCOUNTER 2017-07-02 05:25 | Emergency (ER) | payer MEDICARE, MEDICAID ==
[2017-07-02 05:26] VITALS: BMI 35.6
[2017-07-02 05:39] VITALS: TEMP 97.9
--- NOTE | 2017-07-02 06:21 | C.PDOC ---
History Of Present Illness <Andre Phoenix Km - Last Filed: 07/02/17 06:34> <AshleyVictorino Cade - Last Filed: 07/02/17 11:18> 32 y/o female with a Hx of , presents to the ER c/o diffuse mid abdominal pain for 3 days. patient was seen at [facility] [place] this morning and was discharge. Patient reports her pelvis US showed she was 17 weeks . Denies dysuria, fever, chills, chest pain, or any other complaints. Patient is homeless and has bipolar disorder. (Andre Phoenix) History Per: Patient History/Exam Limitations: no limitations Onset/Duration Of Symptoms: Days (3) Current Symptoms Are (Timing): Still Present Severity: Mild Recent travel outside of the [place]: No Additional History Per: Patient <Andre Phoenix - Last Filed: 07/02/17 06:34> <Victorino Ramirez - Last Filed: 07/02/17 11:18> Time Seen by Provider: 07/02/17 06:34 Chief Complaint (Nursing): Lower Extremity Problem/Injury Past Medical History Reviewed: Historical Data, Nursing Documentation, Vital Signs - Medical History PMH: Anxiety, Asthma, Depression, Paranoia, Schizophrenia Denies: Alzheimer's Disease, Anemia, Arthritis, Cardia Arrhythmia, CHF, Crohn 's Disease, Dementia, Diabetes, Diverticulitis, Fractures, Gall Bladder Disease , Hepatitis, HIV, HTN, Hypercholesterolemia, Hyperthyroidism, Hypothyroidism, Kidney Stones, Migraine, Mitral Valve Prolapse, Osteoporosis, Pancreatitis, Parkinson's Disease, Peripheral Edema, Chronic Kidney Disease, Seizures, Sickle Cell Disease, Sexually Transmitted Disease, TIA Surgical History: Denies: Appendectomy, Cholecystectomy, Coronary Stent, Pacemaker Family History: States: Unknown Family Hx - Social History Hx Tobacco Use: Yes Hx Alcohol Use: No Hx Substance Use: No - Immunization History Hx Tetanus Toxoid Vaccination: No Hx Influenza Vaccination: Yes Hx Pneumococcal Vaccination: No <AlbanAndre Barbour - Last Filed: 07/02/17 06:34> Review Of Systems Except As Marked, All Systems Reviewed And Found Negative. Constitutional: Negative for: Fever, Chills Cardiovascular: Negative for: Chest Pain Gastrointestinal: Positive for: Abdominal Pain Genitourinary: Negative for: Dysuria <Andre Phoenix - Last Filed: 07/02/17 06:34> Physical Exam - Physical Exam Appears: Non-toxic, No Acute Distress Skin: Warm, Dry Head: Atraumatic, Normacephalic Cardiovascular: Rhythm Regular Respiratory: Normal Breath Sounds, No Rales, No Rhonchi, No Wheezing Gastrointestinal/Abdominal: Soft, Tenderness (Mid abdominal tenderness), No Guarding, No Rebound Back: Normal Inspection, No CVA Tenderness Pelvic: No Vaginal Bleeding (Patient denies vaginal bleeding) Neurological/Psych: Oriented x3, Normal Speech, Normal Cognition <Andre Phoenix Km - Last Filed: 07/02/17 06:34> ED Course And Treatment O2 Sat by Pulse Oximetry: 98 (RA) Pulse Ox Interpretation: Normal <AlbanAndre Barbour - Last Filed: 07/02/17 06:34> - Laboratory Results Result Diagrams: 07/02/17 07:50 07/02/17 07:50 <Victorino Ramirez - Last Filed: 07/02/17 11:18> Medical Decision Making <AlbanAndre Barbour - Last Filed: 07/02/17 06:34> <Victorino Ramirez - Last Filed: 07/02/17 11:18> Medical Decision Making: Impression: 32 y/o female c/o diffuse mid abdominal pain for 3 days. Plans: * Blood work up * Tylenol * IV fluids * UA * HCG * US abd/Pel (AlbanAndre Km) Patient signed out to me at change of shift pending US and labs as patient came in complaining of abdominal pain. She has been in the ER asking to sleep. She is known to be homeless and came to this ER directly from another ED. On arrival , she denied any suicidal or homicidal ideation as documented in triage. She refused pelvic sono but she has confirmed IUP already and denies any miscarriage symptoms before arrival. Abdominal US unremarkable. Will prescribe antibiotics for UTI. (Victorino Ramirez) Disposition <PhoenixAndre Barbour - Last Filed: 07/02/17 06:34> - Disposition Disposition Time: 11:17 <Victorino Ramirez - Last Filed: 07/02/17 11:18> - Disposition Disposition: HOME/ ROUTINE Condition: STABLE Prescriptions: Nitrofurantoin Macrocrystals [Macrobid] 100 mg PO BID #20 cap Instructions: Urinary Tract Infection in (ED) Forms: [employer] (Syriac) - Clinical Impression Clinical Impression: UTI (urinary tract infection) - Scribe Statement The provider has reviewed the documentation as recorded by the Scribe <Andre Phoenix - Last Filed: 07/02/17 06:34> <Victorino Ramirez - Last Filed: 07/02/17 11:18> - Scribe Statement Nataliia celestin All medical record entries made by the Scribe were at my direction and personally dictated by me. I have reviewed the chart and agree that the record accurately reflects my personal performance of the history, physical exam, medical decision making, and the department course for this patient. I have also personally directed, reviewed, and agree with the discharge instructions and disposition. (Andre Phoenix)
[2017-07-02 08:00] LABS: BASO # 0.1 K/uL (0.0-0.2); BASO % 0.7 % (0.0-2.0); EOS # 0.3 K/uL (0.0-0.7); EOS % 1.9 % (0.0-4.0); LYMPH # 3.1 K/uL (1.0-4.3); LYMPH % 18.9 % (20.0-40.0); MEAN CELL VOLUME 73.1 fL (81.0-99.0); MEAN CORPUSCULAR HEMOGLOBIN 23.1 pg (27.0-31.0); MEAN CORPUSCULAR HGB CONC 31.6 g/dL (33.0-37.0); MEAN PLATELET VOLUME 7.4 fL (7.2-11.7); MONO % 6.4 % (0.0-10.0); RED CELL DISTRIBUTION WIDTH 15.3 % (11.5-14.5); WHITE BLOOD COUNT 16.1 K/uL (4.8-10.8)
[2017-07-02 08:03] LABS: CHLORIDE 102 mmol/L (98-107); POTASSIUM 3.5 mmol/L (3.6-5.2); SODIUM 135 mmol/L (132-148)
[2017-07-02 08:05] LABS: BILIRUBIN,TOTAL 0.3 mg/dL (0.2-1.3); GFR AFRICAN-AMERICAN > 60
[2017-07-02 08:06] LABS: ALKALINE PHOSPHATASE 64 U/L (38-126); ALT/SGPT 24 U/L (9-52); AST/SGOT 16 U/L (14-36); BLOOD UREA NITROGEN 6 mg/dL (7-17); CALCIUM 8.8 mg/dl (8.6-10.4); CARBON DIOXIDE 20 mmol/L (22-30); GLUCOSE,RANDOM 100 mg/dL (65-105); TOTAL PROTEIN 6.2 g/dL (6.3-8.3)
[2017-07-02 09:10] VITALS: BP 122/71; PULSE 93; RESP 20; O2SAT 95
--- NOTE | 2017-07-02 10:13 | US ---
HISTORY: abd pain COMPARISON: None. TECHNIQUE: Sonographic evaluation of the abdomen. FINDINGS: LIVER: Measures 20.5 cm. Increased echogenicity of the liver parenchyma. No mass. No intrahepatic bile duct dilatation. GALLBLADDER: No gallstones, wall thickening or pericholecystic fluid. The sonographic Arias's sign is negative. COMMON BILE DUCT: Measures 4.2 mm. No stones. No dilatation. PANCREAS: Unremarkable as visualized. No mass. No ductal dilatation. RIGHT KIDNEY: Measures 11.7 x 5.2 x 6.3cm. Normal echogenicity. No calculus, mass, or hydronephrosis. LEFT KIDNEY: Measures 0.9 x 6.7 x 6.5cm. Normal echogenicity. No calculus, mass, or hydronephrosis. SPLEEN: Normal in size and contour. No mass. AORTA: No aneurysmal dilatation. IVC: Unremarkable. OTHER FINDINGS: None. IMPRESSION: Diffuse increased echogenicity throughout the enlarged liver- most consistent with hepatic steatosis. Other hepatic parenchymal pathology is not excluded. No focal masses or dilated ducts No gallbladder pathology noted
[2017-07-02 10:45] LABS: RBC URINE 2 /hpf (0-3); URINE BACTERIA RARE (<OCC); URINE BILIRUBIN NEGATIVE (NEGATIVE); URINE BLOOD NEGATIVE (NEGATIVE); URINE CALCIUM OXALATE CRYSTALS RARE /hpf (<OCC); URINE COLOR Yellow (YELLOW); URINE GLUCOSE (UA) 1+ mg/dL (Normal); URINE KETONE TRACE mg/dL (NEGATIVE); URINE LEUKOCYTE ESTERASE 3+ Leu/uL (Negative); URINE PROTEIN NEGATIVE (NEGATIVE); URINE UROBILINOGEN NORMAL mg/dL (0.2-1.0); WBC URINE 28 /hpf (0-5)
== END 2017-07-02 11:25 | disposition home or self-care (01) ==
LOC: C.ER 05:25
DX: O23.42 Unspecified infection of urinary tract in pregnancy, second trimester (principal); Z3A.17 17 weeks gestation of pregnancy

== ENCOUNTER 2017-07-03 22:56 | Emergency (ER) | payer MEDICARE, MEDICAID ==
[2017-07-03 22:56] VITALS: BMI 35.6
[2017-07-03 23:07] VITALS: BP 133/89; PULSE 109; RESP 16; TEMP 98.1; O2SAT 100
--- NOTE | 2017-07-03 23:31 | C.PDOC ---
History Of Present Illness 32 year old female who is approximately 17 weeks presents to the ER with a complaint of mild foot swelling. Patient has a normal intrauterine that was confirmed by an US done on 06/23. Patient had another [place] [facility] [place] that was normal. Patient was seen last night in the ER where she had a negative abdominal US and negative work up except for a 21 white count in urine. Patient states her symptoms have not changed since last night; she has a Hx of schizophrenia and multiple psychiatric diseases, claims the US results are not hers. Denies fever, chills, or pain. Time Seen by Provider: 07/03/17 23:11 Chief Complaint (Nursing): Lower Extremity Problem/Injury History Per: Patient History/Exam Limitations: no limitations Onset/Duration Of Symptoms: Days Current Symptoms Are (Timing): Still Present Recent travel outside of the [place]: No Past Medical History Reviewed: Historical Data, Nursing Documentation, Vital Signs Vital Signs: Last Vital Signs Temp 98.1 F 07/03/17 23:04 Pulse 109 H 07/03/17 23:04 Resp 16 07/03/17 23:04 BP 133/89 07/03/17 23:04 Pulse Ox 100 07/04/17 00:03 - Medical History PMH: Anxiety, Asthma, Depression, Paranoia, Schizophrenia Surgical History: No Surg Hx - [facility] Procedures INJECT/INFUSE NEC (12/30/05) PSYCHIAT DRUG THERAP NEC (02/04/14) Family History: States: Unknown Family Hx - Social History Hx Tobacco Use: Yes Hx Alcohol Use: No Hx Substance Use: No - Immunization History Hx Tetanus Toxoid Vaccination: No Hx Influenza Vaccination: Yes Hx Pneumococcal Vaccination: No Review Of Systems Constitutional: Negative for: Fever, Chills Gastrointestinal: Negative for: Nausea, Vomiting, Abdominal Pain Musculoskeletal: Negative for: Leg Pain, Foot Pain Skin: Positive for: Other (Swelling) Physical Exam - Physical Exam Appears: Non-toxic, No Acute Distress, Other (Obese) Skin: Normal Color, Warm, Dry Head: Atraumatic, Normacephalic Oral Mucosa: Moist Cardiovascular: Rhythm Regular, No Murmur Respiratory: Normal Breath Sounds, No Rales, No Rhonchi, No Wheezing Extremity: Normal ROM (x4), Pedal Edema (Mild bilateral), Other (Obese, symmetrical legs) Neurological/Psych: Oriented x3, Normal Speech, Normal Cognition ED Course And Treatment O2 Sat by Pulse Oximetry: 100 (Room air) Pulse Ox Interpretation: Normal Progress Note: Macrobid administered. Medical Decision Making Medical Decision Making: paranoid schizophrenic with multiple recent normal US's and ABD US's all normal Seen last night with normal eval and mild UTI, prescibed ABX Poor insight into her and mild UTI mild pedal edema and leg obesity typical of , low susp of pre- eclampsia or DVT, normal w/u yesterday and no sig change in s/s today pt urinated freely but did not get any in the cup and declines to provide further UA understanding mild UTI from yesterday's w/u, given Macrobid PO and re-precribed to complete 5 day course Encouraged to f/u @ [facility] clinic. Disposition Doctor Will See Patient In The: Office Counseled Patient/Family Regarding: Studies Performed, Diagnosis - Disposition Referrals: [facility] [Outside] [facility] [Outside] [facility] [employer] [facility] [Outside] Disposition: HOME/ ROUTINE Disposition Time: 23:34 Condition: GOOD Additional Instructions: continue Macrobid 100 mg (antibiotic) twice a day to complete 5 days of antibiotics for your mild urinary tract infection during You were given the results of your Ultrasound from 06/23/17 showing a 15 week with normal progression. Prescriptions: Nitrofurantoin Macrocrystals [Macrobid] 100 mg PO BID #6 cap Instructions: Urinary Tract Infection in (ED) Forms: [employer] (Portuguese) - Clinical Impression Clinical Impression: Schizoaffective disorder, UTI (urinary tract infection), - Scribe Statement The provider has reviewed the documentation as recorded by the Scribe Holden Rosas All medical record entries made by the Scribe were at my direction and personally dictated by me. I have reviewed the chart and agree that the record accurately reflects my personal performance of the history, physical exam, medical decision making, and the department course for this patient. I have also personally directed, reviewed, and agree with the discharge instructions and disposition.
== END 2017-07-03 23:45 | disposition home or self-care (01) ==
LOC: C.ER 22:56
DX: O99.342 Other mental disorders complicating pregnancy, second trimester (principal); F25.9 Schizoaffective disorder, unspecified; O23.42 Unspecified infection of urinary tract in pregnancy, second trimester; Z3A.17 17 weeks gestation of pregnancy

== ENCOUNTER 2017-07-07 13:25 | Inpatient (IN) | payer MEDICARE, MEDICAID ==
[2017-07-07 13:26] VITALS: BMI 35.6
[2017-07-07 14:43] LABS: RBC URINE 5 /hpf (0-3); URINE BACTERIA RARE (<OCC); URINE BILIRUBIN NEGATIVE (NEGATIVE); URINE BLOOD NEGATIVE (NEGATIVE); URINE CALCIUM OXALATE CRYSTALS RARE /hpf (<OCC); URINE COLOR Yellow (YELLOW); URINE GLUCOSE (UA) 1+ mg/dL (Normal); URINE KETONE TRACE mg/dL (NEGATIVE); URINE LEUKOCYTE ESTERASE TRACE Leu/uL (Negative); URINE PROTEIN NEGATIVE (NEGATIVE); URINE UROBILINOGEN NORMAL mg/dL (0.2-1.0); WBC URINE 9 /hpf (0-5)
[2017-07-07 14:49] LABS: BASO # 0.1 K/uL (0.0-0.2); BASO % 0.7 % (0.0-2.0); EOS # 0.3 K/uL (0.0-0.7); EOS % 1.6 % (0.0-4.0); HEMATOCRIT 33.5 % (34.0-47.0); LYMPH # 2.8 K/uL (1.0-4.3); LYMPH % 16.1 % (20.0-40.0); MEAN CELL VOLUME 72.8 fL (81.0-99.0); MEAN CORPUSCULAR HEMOGLOBIN 24.1 pg (27.0-31.0); MEAN CORPUSCULAR HGB CONC 33.1 g/dL (33.0-37.0); MEAN PLATELET VOLUME 7.6 fL (7.2-11.7); MONO % 5.8 % (0.0-10.0); NRBC % 0.1 % (0.0-2.0); RED CELL DISTRIBUTION WIDTH 15.6 % (11.5-14.5); WHITE BLOOD COUNT 17.2 K/uL (4.8-10.8)
[2017-07-07 15:02] LABS: CHLORIDE 102 mmol/L (98-107)
[2017-07-07 15:03] LABS: SODIUM 139 mmol/L (132-148)
[2017-07-07 15:05] LABS: ALKALINE PHOSPHATASE 64 U/L (38-126); AST/SGOT 15 U/L (14-36); BILIRUBIN,TOTAL 0.4 mg/dL (0.2-1.3); BLOOD UREA NITROGEN 8 mg/dL (7-17); CARBON DIOXIDE 23 mmol/L (22-30); GFR AFRICAN-AMERICAN > 60; TOTAL PROTEIN 6.6 g/dL (6.3-8.3)
[2017-07-07 15:06] LABS: ALCOHOL SERUM < 10 mg/dl (0-10); ALT/SGPT 24 U/L (9-52); CALCIUM 9.4 mg/dl (8.6-10.4); GLUCOSE,RANDOM 102 mg/dL (65-105)
[2017-07-07 17:30] VITALS: O2SAT 96
--- NOTE | 2017-07-07 17:42 | C.PDOC ---
History Of Present Illness 32 y/o female with hx of schizoaffective disorder presents to ED with suicidal ideation without plan . Patient is approximately 4 months . Patient denies Homicidal ideation or auditory hallucinations. No physical complaints at this time. Time Seen by Provider: 07/07/17 14:21 Chief Complaint (Nursing): Psychiatric Evaluation History Per: Patient History/Exam Limitations: no limitations Onset/Duration Of Symptoms: Days Current Symptoms Are (Timing): Still Present Suicide/Self Injury Attempted (Context): None Modifying Factor(s): None Past Medical History Reviewed: Historical Data, Nursing Documentation, Vital Signs Vital Signs: Last Vital Signs Temp 98 F 07/07/17 17:26 Pulse 100 H 07/07/17 17:26 Resp 18 07/07/17 17:26 BP 109/71 07/07/17 17:26 Pulse Ox 96 07/07/17 17:45 - Medical History PMH: Anxiety, Asthma, Depression, Paranoia, Schizophrenia Surgical History: No Surg Hx - [facility] Procedures INJECT/INFUSE NEC (12/30/05) PSYCHIAT DRUG THERAP NEC (02/04/14) Family History: States: Unknown Family Hx - Social History Hx Tobacco Use: Yes Hx Alcohol Use: No Hx Substance Use: No - Immunization History Hx Tetanus Toxoid Vaccination: No Hx Influenza Vaccination: Yes Hx Pneumococcal Vaccination: No Review Of Systems Except As Marked, All Systems Reviewed And Found Negative. Constitutional: Negative for: Fever, Chills Cardiovascular: Negative for: Chest Pain Respiratory: Negative for: Shortness of Breath Gastrointestinal: Negative for: Nausea, Vomiting Skin: Negative for: Rash Neurological: Negative for: Weakness, Numbness Psych: Positive for: Suicidal ideation. Negative for: Anxiety, Withdrawal Physical Exam - Physical Exam Appears: Non-toxic, No Acute Distress Skin: Normal Color, Warm, Dry, No Rash Head: Atraumatic, Normacephalic Eye(s): bilateral: Normal Inspection Oral Mucosa: Moist Neck: Normal ROM Chest: Symmetrical Cardiovascular: Rhythm Regular Respiratory: Normal Breath Sounds, No Rales, No Rhonchi, No Wheezing Gastrointestinal/Abdominal: Soft, No Tenderness, No Guarding, No Rebound Extremity: Normal ROM, Capillary Refill (<2 seconds) Neurological/Psych: Oriented x3, Normal Speech ED Course And Treatment - Laboratory Results Result Diagrams: 07/07/17 14:44 08/29/17 14:44 O2 Sat by Pulse Oximetry: 96 (RA) Pulse Ox Interpretation: Normal Disposition - Disposition Disposition: HOSPITALIZED Disposition Time: 16:30 Condition: STABLE - Clinical Impression Clinical Impression: Schizoaffective disorder - PA / MANAGER VIDEO / Resident Statement MD/DO has examined the patient and agrees with the treatment plan. - Scribe Statement The provider has reviewed the documentation as recorded by the Kinjaliblois Erickson All medical record entries made by the Kinjaliblois were at my direction and personally dictated by me. I have reviewed the chart and agree that the record accurately reflects my personal performance of the history, physical exam, medical decision making, and the department course for this patient. I have also personally directed, reviewed, and agree with the discharge instructions and disposition.
--- NOTE | 2017-07-07 23:12 | PCM.BM ---
<Evin Thacker - Last Filed: 07/07/17 23:09> Treatment Plan Problems - Problems identified on initial assessmt Suicidal Ideation Date Initiated: 07/07/17 Time Initiated: 17:45 Assessment reference: NA Status: Active Treatment assets and liabiliti Patient Assests: ADL independent, physically healthy Patient Liabilities: poor support system, relationship conflicts - Milieu Protocol Maintain good personal hygiene: daily Encourage regular showers, daily Remind patient to perform daily oral care Maintain personal safety: every shift Educate patient to report safety concerns to staff, every shift Monitor environment for contraband/sharps Medication safety: Monitor for expected outcome, potential side effects: every shift, Assess barriers to learning: every shift, Assess readiness for medication education: every shift <Lillian Marsh - Last Filed: 07/08/17 11:26> Family Contact Family involvement: Famliy/SO not involved - Goals for Treatment Patient goals for treatment: "I'm going to get my own apartment." Discharge/Continuing Care - Education Needs Education Needs: Patient Medication, Patient Coping Skills, Patient Placement options - Discharge Discharge Criteria: Tolerates medication w/o severe side effects, Free of Suicidal thoughts Discharge to:: Snf - Treatment Team Participation Discussed with Family/SO: No Was Patient/Family/SO present at Treatment Team Meeting: Yes <Khurram Cevallos - Last Filed: 07/08/17 11:31> - Diagnosis (1) Schizoaffective disorder Status: Acute Interventions: 07/08/17 11:30 * Assess/adjust medications daily and /or as needed * See patient on an individual basis 7x/week to assess status of hallucinations * Discuss risks, benefits, side effects and alternatives of medications *
[2017-07-08 07:41] VITALS: RESP 20; TEMP 97.8
[2017-07-08] MEDS: Prenatal Multivit/Folic Acid/Iron Tab PO SCH (10:43)
--- NOTE | 2017-07-08 10:49 | PCM.PSYCH ---
Initial Psychiatric Evaluation - Initial Psychiatric Evaluation Type of Admission: Voluntary Legal Status: Capacity Chief Complaint (in patient's own words): I was feeling depressed and suicidal.' History of Present Illness and Precipitating Events: Patient is a 32 years old HF, who is originally form [place], but [facility], and 4 months , came to the hospital due to a very disorganized and internally preoccupied behavior and suicidal ideation. Patient remained disorganized and internally preoccupied throughout the interview. She remained a poor historian and she was superficially cooperative but remained guarded about the details. Patient has a long history of hearing voices. She was just discharged from the [facility], almost 1 month ago (she signed out AMA), and became non- compliant with psychiatric medications. She reported feeling afraid to take her medications due to her status. As per the ED chart, pt reported being 4 months and receiving care at [facility] two weeks ago. Pt at time of contact appeared to be in moderate psychiatric distress precipitated by unstable housing, non-compliance with psychotropic medication therapy and lack of community mental health follow-up. Pt appeared to be responding to internal stimuli and required prompts to respond to the evaluation inquiries and personal information pertaining to patient's whereabouts for the last four years. Pt continued to present with suicidal intent and reported feeling like overdosing on remaining prescription medications. Patient remained paranoid, delusional and psychotic throughout the evaluation. She reports depressed mood and feelings of hopelessness and helplessness. She also reports auditory hallucinations non command type and reports persecutory delusions that someone is following her. She also reports irritability and agitation. PMH None reported except current Current Medications: Active Medications Generic Name Dose Route Start Last Admin Trade Name Freq PRN Reason Stop Dose Admin Diphenhydramine HCl 25 mg 07/07/17 22:00 07/08/17 06:28 Benadryl PO Not Given Q8 LEONARD Haloperidol 2 mg 07/07/17 17:45 Haldol PO Q8 PRN Moderate Agitation Haloperidol Lactate 2 mg 07/07/17 18:02 Haldol IM Q8 PRN Moderate Agitation Multivit/Folic Acid/Iron 1 tab 07/08/17 10:00 07/08/17 10:43 PO 1 tab DAILY LEONARD Administration Past Psychiatric History - Past Psychiatric History Previous Treatment History: Inpatient Pertinent Medical Hx (Current Medical&Sleep Prob, Allergies): Allergies Allergy/AdvReac Type Severity Reaction Status Date / Time FISH Allergy Verified 07/07/17 13:37 Fish Containing Products Allergy Verified 07/07/17 13:37 clindamycin AdvReac VOMITING Verified 07/07/17 13:37 No Known Home Med 07/07/17 Review of Systems - Review of Systems All systems: reviewed and no additional remarkable complaints except - Psychiatric Psychiatric: Anxiety, Auditory Hallucinations, Irritability, Mood Swings, Paranoia, Suicidal Ideation Mental Status Examination - Personal Presentation Personal Presentation: Looks stated age - Affect Affect: Constricted, Depressed - Motor Activity Motor Activity: Psychomotor Agitation - Reliability in Providing Information Reliability in Providing Information: Poor, due to alteration in thoughts, Poor , due to altered mood - Speech Speech: Disorganized - Mood Mood: Depressed, Anxious - Formal Thought Process Formal Thought Process: Hallucinations, Delusions, Paranoia, Loosening of associations - Hallucinations/Delusions Hallucinations: Auditory Delusions: Persecution - Obsessions/Compulsions Obsessions: No Compulsions: No - Cognitive Functions Orientation: Person, Place, Situation, Time Sensorium: Alert Attention/Concentration: Attentive Abstract Thinking: [place] Estimate of Intelligence: Below average Judgement: Imparied, as evidence by: Poor judgement, Imparied, as evidence by: Lack of insight into illness - Risk Risk: Suicidal, Diminished functioning - Limitations Limitations: Living alone DSM 5 DX - DSM 5 DSM 5 Diagnosis: Schizoaffective disorder bipolar type - Recommended/Plan of Treatment Treatment Recommendations and Plan of Treatment: Schizoaffective disorder bipolar type CBT Psychoeducation Supportive therapy, group therapy, individual therapy Haldol 5 mg PO Q6 hr prn Benadryl 50 mg by mouth daily at bedtime MVI Folic acid - Smoking Cessation Smoking Cessation Initiated: No
[2017-07-09] MEDS ORDERED: Multiple Vitamins Tab PO SCH (10:00)
[2017-07-09] MEDS: Prenatal Multivit/Folic Acid/Iron Tab PO SCH (10:19)
--- NOTE | 2017-07-09 14:54 | PCM.PYCHPN ---
Psychiatric Progress Note - Psychiatric Progress Note Patient seen today, length of contact: 15 min. Patient Chief Complaint: "I'm tired and have difficulty sleeping." Problems Identified/Issues Discussed: The pt. is seen, chart reviewed, case discussed with staff. Pt. continues to remain disorganized and internally preoccupied throughout the interview. Pt. continues to be irate and provides nonsensical answers regarding her medication intake. She refuses to take mood stabilizers, claiming that she is "allergic" to Abilify and Seroquel, and that those medications make her " more tremulous and suicidal." Pt. denies visual and auditory hallucinations. Pt. denies paranoia and homicidal ideation. Pt claims that DYFS is not involved. Howevere last time she was here which is not too long ago, she was interviewed by them. we will call again b/c the pt is refusing meds and put in a 48 hr notice to leave. Pt. is non-compliant with psychiatric medications. After care discussed, support and psychoeducation given. Medication Change: Yes (add risperdal - risks in discussed) Medical Record Reviewed: Yes Consults ordered or reviewed: family psychologist consult requested but was denied b/c pt. refuses to have ultrasound done Mental Status Examination - Cognitive Function Orientation: Person, Place, Situation, Time Memory: Intact Attention: Poor Concentration: Poor Association: Loose Fund of Knowledge: Poor - Mood Mood: Depressed, Anxious - Affect Affect: Constricted, Depressed - Speech Speech: Appropriate - Formal Thought Process Formal Thought Process: Delusions, Loosening of associations - Suicidal Ideation Suicidal Ideation: No - Homicidal Ideation Homicidal Ideation: No Goal/Treatment Plan - Goal/Treatment Plan Need for Continued Stay: Remain at risks for inpatient hospitalization, Severe depression anxiety, Discharge may exacerbated symptoms Progress Toward Problem(s) and Goals/Treatment Plan: Schizoaffective disorder bipolar type CBT Psychoeducation Supportive therapy, group therapy, individual therapy Haldol 2mg PO Q8 PRN Risperdal 1mg PO QPM Benadryl 25 mg PO Q6 PRN MVI Folid Acid - Smoking Cessation Smoking Cessation Initiated: No
[2017-07-09 15:50] VITALS: BP 100/65; PULSE 100
--- NOTE | 2017-07-10 09:23 | PCM.PYCHDC ---
Mental Status Examination - Mental Status Examination Orientation: Person, Place, Situation, Time Memory: Intact Mood: Depressed, Anxious Affect: Constricted Speech: Appropriate Attention: Poor Concentration: Poor Association: WNL Fund of Knowledge: WNL Formal Thought Process: Paranoia Suicidal Ideation: No Current Homicidal Ideation?: No Discharge Summary - Discharge Note Reason for Hospitalization: Disorganized, depressed and suicidal, paranoid/agitated Psychiatric History (includes Medical, Family, Personal Hx): multiple admissions Consultations:: List each consultation separately and include: 1. Reason for request. 2. Findings. 3. Follow-up Consultations: learning and development analyst consult requested but was denied b/c pt. refuses to have ultrasound done Summary of Hospital Course include:: 1. Description of specific treatment plan utilized for patients during their course of treatmen. 2. Summarize the time- course for resolution of acute symptoms and/or regressed behaviors. 3. Describe issues identified and worked on during hospitalization. 4. Describe medication utilized. 5. Describe medical problems identified and treated. 6. Reassessment of suicide risk Summary of Hospital Course: The pt. was admitted and started on treatment with psychotherapy, support, psychoeducation, and medications. The pt, however, did not attend groups and chose to "crash" in her room mostly and then demanded discharge All the risks and benefits of medications are discussed and the patient understood and agreed. She had decided to keep her baby, unlike last time when she was contemplating . The pt. improved with the treatments provided. After care discussed with patient. She agreed to go to [facility] an d take meds (but very reluctantly, not b/c of but bc she doesn;t believe she needs meds ) She may be using K2-type anime designer drugs that do noyt come positive in standard UDS. She looks very drugged but UDS is negative. Pt. is discharged against medical advice. Pt. was frequently agitated about staying longer and pleaded to be discharged immediately. Pt. was advised that she would be leaving against medical advice and she understood the risks and agreed. Marine Engineering Consultant still gave a rx and SW arrnaged an appoint,ent. DYFS is also made aware. Tehy still keep her case open but cannot do much until delivery. - Final Diagnosis (DSM 5) Condition upon Discharge: IMPROVED DSM 5: Schizoaffective d/o-bipolar type Disposition: AGAINST MEDICAL ADVICE Follow-up Treatment Plan: Continue with medications after discharge. Follow after care plan as discussed. Use relapse prevention skills. Return to ER or call 911 if suicidal, homicidal, or symptoms relapse. Stay away from stress, alcohol, and drugs. See primary doctor one a year. ANd OBGYN monthly at least - Smoking Cessation Smoking Cessation Medication prescribed: No - Antipsychotic Medications Pt discharged on 2 or more routine antipsychotic medications: No
[2017-07-10] MEDS: Prenatal Multivit/Folic Acid/Iron Tab PO SCH (09:35)
== END 2017-07-10 10:30 | disposition left against medical advice (07) | DRG 781 ==
LOC: C.ER 13:25 → C.9E 16:29 → C.5E 16:58
PROVIDERS: ADMIT Psychiatry & Neurology Psychiatry; ATTEND Psychiatry & Neurology Psychiatry
DX: O99.342 Other mental disorders complicating pregnancy, second trimester (principal); R45.851 Suicidal ideations; F25.0 Schizoaffective disorder, bipolar type; F22 Delusional disorders; Z3A.00 Weeks of gestation of pregnancy not specified; Z91.19 Patient's noncompliance with other medical treatment and regimen

== ENCOUNTER 2017-07-13 05:36 | Emergency (ER) | payer MEDICARE, MEDICAID ==
[2017-07-13 05:50] VITALS: BMI 34.7
--- NOTE | 2017-07-13 07:19 | OBHP ---
Datetime: 07/13/2017 06:57 Admit Comment, IP Provider: 32 y/o _ 19 wks dated by US done in ER 06/23 15.1 wk [place] , poor hi storiain. Pt reports she is here today for generalized body aches and pain x 2 weeks. Pt denies any f ever, chills, nausea, vomiitng, CP, SOB, dysuria, urgency, freuqency, vaginal bleeding, pressure, con statopin. pt also reports swelling of her legs but denies any calf pain or tenderness. Pt states she receives care at the Er at [facility]. Pt reports she feels like she is going to b ut is unable to elaboarate. Pt reports she has an appointment 07/23 for prentatal care. Pt denies any psych hx (schizoaffective as per [facility] records) and denies any SI, HI, sadness or dep ression. Ante: no PNC OB: x 1 reports 9months and 7 days, 9lb+ 2 years ago, SAB 7 months CONTENT ASSISTANT: denies, no regular top screw care PMH: Insomnia, ? Schizoaffective as per previous notes in [facility] PSH: DxC FHX: denies SHX: reports stopped smoking today , use ot smoke whenever she can, denies etoh, drugs pt reports lives in long term temporary MEDS PNV, Hydroxyzine, Melafonn, venalfaxine, ropinirole, zolpidem (reports only taking pnv) GEN: NAD, AAO x 3, takes longer than ususal to answer questions RESP Ctab/l CVS RRR, +S1/S2 ABS: gravid, soft, no palpable ctx, no guarding, no rebouund tendenress, no rigidity VE: declined Ext; No calf tenderness, pulses 2+ b/l A/P 32 y/o _ 19 wks, no care, refusing full examination -discharge to ER for evaluation -Refusal of treament form signed, witnessed by nurse Rose Forrester -importance of care, follo wup , smoking cessation, etc d/w patient Pelvic Type - PN: Adequate Extremities - PN: Normal Abdomen - PN: Normal Back - PN: Normal Breast - PN: Not Done Lungs - PN: Normal Heart - PN: Normal Thyroid - PN: Not Done Neurologic - PN: Not Done HEENT - PN: Normal General - PN: Normal FHR - Baseline A Provider: 130 Contraction Comments Provider: none Comments, ACOG Physical Exam: Refusing pelvic exam Gestation - Est Wks by US: 19.0 IP Hx Assessment: No Care EGA AdmitDate IP: 19.4 IP Chief Complaint: Other NICHD Decel Fetus A IP Provider: None Dilatation, Provider: refused Genitourinary Exam: Not Done DTRs - PN: Normal
--- NOTE | 2017-07-13 07:49 | C.PDOC ---
History Of Present Illness 32F sent here from L&D floor. per OB Dr Diego the pt initially gave incorrect dates- said she is 29wga but in reality only 19wga. she apparently had multiple complaints upstairs and refused pelvic exam so she was sent down here for further eval, Dr Diego said body aches seemed to be her cc. she denies any suicidal ideation, but beyond this the pt refuses to speak with me or allow me to examine her, only requesting to leave before I can obtain any further history. Time Seen by Provider: 07/13/17 07:47 Chief Complaint (Nursing): Psychiatric Evaluation Past Medical History Vital Signs: Last Vital Signs Temp 98.0 F 07/13/17 07:53 Pulse 97 H 07/13/17 07:53 Resp 20 07/13/17 07:53 BP 112/75 07/13/17 07:53 Pulse Ox 100 07/13/17 07:53 - Medical History PMH: Anxiety, Asthma, Depression, Paranoia, Schizophrenia Denies: Alzheimer's Disease, Anemia, Arthritis, Cardia Arrhythmia, CHF, Crohn 's Disease, Dementia, Diabetes, Diverticulitis, Fractures, Gall Bladder Disease , Hepatitis, HIV, HTN, Hypercholesterolemia, Hyperthyroidism, Hypothyroidism, Kidney Stones, Migraine, Mitral Valve Prolapse, Osteoporosis, Pancreatitis, Parkinson's Disease, Peripheral Edema, Chronic Kidney Disease, Seizures, Sickle Cell Disease, Sexually Transmitted Disease, TIA Surgical History: Denies: Appendectomy, Cholecystectomy, Coronary Stent, Pacemaker - [facility] Procedures INJECT/INFUSE NEC (12/30/05) PSYCHIAT DRUG THERAP NEC (02/04/14) Family History: States: Unknown Family Hx - Social History Hx Tobacco Use: Yes Hx Alcohol Use: No Hx Substance Use: No - Immunization History Hx Tetanus Toxoid Vaccination: No Hx Influenza Vaccination: Yes Hx Pneumococcal Vaccination: No Review Of Systems Review Of Systems: ROS cannot be obtained secondary to pt's inabilty to answer questions. (psych) Physical Exam - Physical Exam Appears: Non-toxic Head: Atraumatic Respiratory: No Accessory Muscle Use Neurological/Psych: Oriented x3, Other (no focal deficits) Medical Decision Making Medical Decision Making: The report of SI in the triage note is cell tuber hand and unclear where this came from. In the physician report I received from Dr Diego this morning there is no SI and her note reflects this. The patient is also denying this, does say she has a history of SI, but not today. She is a&ox3 and therefore I donot feel there are grounds to hold her involuntarily. She signed out AMA. Disposition - Disposition Referrals: [facility] [Outside] Disposition: AGAINST MEDICAL ADVICE Disposition Time: 08:51 Condition: STABLE Forms: [facility] (Haitian), General Discharge Instructions - Clinical Impression Clinical Impression: Body aches
[2017-07-13 07:59] VITALS: BP 112/75; PULSE 97; RESP 20; TEMP 98; O2SAT 100
== END 2017-07-13 08:52 | disposition left against medical advice (07) ==
LOC: C.EROB 05:36 → C.ER 05:36
DX: R52 Pain, unspecified (principal)